=== PATIENT | male | born 1990 | race Caucasian/White ===

== ENCOUNTER → 2019-11-08 10:24 | Outpatient (CLI) | payer OTHER, SELFPAY ==
[2019-11-08 12:23] LABS: Anion Gap 5 (5-15); BUN 10 mg/dL (7-18); BUN/Creat Ratio 9.6 RATIO (10-20); Calcium,Total 9.2 mg/dL (8.5-10.1); Chloride 104 mmol/L (98-107); Creatinine, Serum 1.04 mg/dL (0.70-1.30); EST Glomerular Filtration Rate 88 mL/min (>60); Est Glom Filt Rate - Afr Amer 107 mL/min (>60); Glucose 70 mg/dL (74-106); Potassium 3.5 mmol/L (3.5-5.1); Sodium Level 138 mmol/L (136-145); Thyroid Stim Hormone (TSH) 1.78 uIU/mL (0.358-3.74)
== END ==
PROVIDERS: PCP Family Medicine; Visit Provider Nurse Practitioner Adult Health
DX: N41.1 Chronic prostatitis (principal); K59.8 Other specified functional intestinal disorders
CPT/HCPCS: 36415; 80048; 84403; 84443